=== PATIENT | male | born 1990 | race Caucasian/White ===

== ENCOUNTER 2017-03-15 23:23 | Emergency (ER) | payer OTHER ==
[2017-03-15 23:30] VITALS: BP 134/68
[2017-03-16] MEDS ORDERED: Tetan/Diph/Pertus SYR(Tdap)* 0.5 ML SYR(BOOSTRIX) use SYR IM ONE ×2 (01:16→01:18)
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
== END 2017-03-16 01:31 | disposition home or self-care (01) ==
LOC: ED 23:23
DX: S71.111A Laceration without foreign body, right thigh, initial encounter (principal); V86.59XA Driver of other special all-terrain or other off-road motor vehicle injured in nontraffic accident, initial encounter; Y92.9 Unspecified place or not applicable; Z88.0 Allergy status to penicillin
CPT/HCPCS: 12001; 90471; 90715; 99282